=== PATIENT | female | born 1940 | race Caucasian/White ===

== ENCOUNTER 2022-12-14 01:10 | Day surgery (SDC) | payer MEDICARE, SELFPAY ==
[2022-12-05 13:59] VITALS: BMI 32.9
--- NOTE | 2022-12-05 14:22 | PC.NURSE ---
Patient had an inventory taker already set up on her phone when she was called for pre op interview.
[2022-12-14 07:44] VITALS: BP 155/52; PULSE 64; RESP 16; TEMP 36.1; O2SAT 100
[2022-12-14] MEDS: LACTATED RINGERS 1,000 ML 150 ML IV CONT (07:48)
--- NOTE | 2022-12-14 07:54 | WPDANESEPPF ---
Anes - Initial Pre Proc Eval Procedure: Operation Date: 12/14/22 09:00 Proposed Procedures p Colonoscopy - Paul Becerra MD Date/Time: 12/14/22 07:54 Surgeon: Paul Becerra MD Pre Op Diagnosis: hx colon polyps Patient Data Age: 82 Gender: F Height: 1.45 m Weight: 69.5 kg Last Vital Signs Temp 36.1 C L 12/14/22 07:44 Pulse 64 12/14/22 07:44 Resp 16 12/14/22 07:44 BP 155/52 H 12/14/22 07:44 Pulse Ox 100 12/14/22 07:44 O2 Del Method Room Air 12/14/22 07:44 Allergies Allergy/AdvReac Type Severity Reaction Status Date / Time No Known Allergies Allergy Verified 12/14/22 07:42 Home Medications Medication Instructions Recorded Confirmed Type omeprazole 40 mg capsule,delayed 40 mg PO DAILY #90 caps 03/28/21 12/14/22 Rx release amlodipine 5 mg tablet 5 mg PO DAILY 12/05/22 12/14/22 History aspirin 81 mg tablet,delayed 81 mg PO DAILY 12/05/22 12/14/22 History release losartan 25 mg tablet 25 mg PO DAILY 12/05/22 12/14/22 History lovastatin 40 mg tablet 40 mg PO DAILY 12/05/22 12/14/22 History metoprolol tartrate 25 mg tablet 25 mg PO BID 12/05/22 12/14/22 History Patient hx anesthesia problems: none Family hx anesthesia problems: none Results Review: All pre-operative results and documents have been reviewed as part of the pre-operative evaluation. [facility] Past Medical History Medical History (Updated 12/14/22 @ 07:55 by Edward Harman MD) Deaf HTN (hypertension) Myocardial infarct Obesity Surgical History Surgical History (Updated 12/14/22 @ 07:55 by Edward Harman MD) H/O colonoscopy Social History Social History Smoking status: Never smoker Substance use type: does not use Living arrangements: other Anes - Eval Final PreProcedure Day of Procedure 12/14/22 07:54 Patient weight: obese Heart: regular rate and rhythm Lungs: clear to auscultation Neurological: alert and oriented Last oral intake: >/= 8 hours ASA classification: III Emergent: no Anesthetic plan: proceed Anesthesia type and monitoring: general GIVS and standard monitoring Results Review: All pre-operative results and documents have been reviewed as part of the pre-operative evaluation. Informed Consent: The patient's anesthetic plan and its attendant risks and benefits were discussed with the patient/family/POA. Questions were solicited and answers provided to the satisfaction of the patient/family/POA.
--- NOTE | 2022-12-14 08:16 | P.HP_ITS ---
History of Present Illness History of Present Illness Consent: Risks, benefits, and alternatives have been discussed and questions answered. Patient agrees to proceed with procedure. Chief complaint: hx colon polyps Narrative: Zelda Martin is a 82 year old female Presents for screening colonoscopy. Patient is deaf and much of the history is obtained with the assistance of her daughter who reads lips and sign language. Patient has a history of cecal polyp removed at [facility] in 2017. Patient reports her current weight appetite bowel movements are normal. She presents today for screening colonoscopy. Review of Systems Review of Systems: Review of systems noncontributory. [facility] Past Medical History Medical History (Updated 12/14/22 @ 08:17 by Paul Becerra MD) Deaf HTN (hypertension) Myocardial infarct Obesity Surgical History Surgical History (Updated 12/14/22 @ 07:55 by Edward Harman MD) H/O colonoscopy Social History Social History Smoking status: Never smoker Substance use type: does not use Living arrangements: other Meds Home Medications and Allergies Home Medications Medication Instructions Recorded Confirmed Type omeprazole 40 mg capsule,delayed 40 mg PO DAILY #90 caps 03/28/21 12/14/22 Rx release amlodipine 5 mg tablet 5 mg PO DAILY 12/05/22 12/14/22 History aspirin 81 mg tablet,delayed 81 mg PO DAILY 12/05/22 12/14/22 History release losartan 25 mg tablet 25 mg PO DAILY 12/05/22 12/14/22 History lovastatin 40 mg tablet 40 mg PO DAILY 12/05/22 12/14/22 History metoprolol tartrate 25 mg tablet 25 mg PO BID 12/05/22 12/14/22 History Allergies Allergy/AdvReac Type Severity Reaction Status Date / Time No Known Allergies Allergy Verified 12/14/22 07:42 Vital Signs Vital Signs - 24 hr 12/14/22 07:44 Temperature 96.9 F L Pulse Rate 64 Respiratory Rate 16 Blood Pressure 155/52 H Pulse Oximetry 100 Oxygen Delivery Room Air Exam Narrative: Physical exam reveals patient to be alert. Vital signs stable. HEENT exam is unremarkable. Patient is anicteric. Lungs are clear to auscultation and percussion. Heart is without murmur or extra sounds. Abdomen bowel sounds are present soft nontender with no organomegaly. Digital external rectal exam is normal. Assessment and Plan Assessment and plan (1) History of colon polyps: Code(s): Z86.010 - Personal history of colonic polyps Status: Acute Assessment and Plan: Patient has a history of colon polyps removed elsewhere more than 5 years ago. Plan for surveillance colonoscopy at this time and consider this at 5 year intervals. (2) Deaf: Code(s): H91.90 - Unspecified hearing loss, unspecified ear Status: Acute
[2022-12-14 09:09] VITALS: BP 111/54; PULSE 60; RESP 16; O2SAT 99
[2022-12-14 09:19] VITALS: BP 111/53; PULSE 60; RESP 15; O2SAT 99
[2022-12-14 09:29] VITALS: BP 113/52; PULSE 60; RESP 16; O2SAT 99
== END 2022-12-14 09:45 | disposition home or self-care (01) ==
PROVIDERS: PCP Internal Medicine Infectious Disease; Visit Provider Internal Medicine Gastroenterology
PROC: 0DJD8ZZ Inspection of Lower Intestinal Tract, Via Natural or Artificial Opening Endoscopic (ICD-10-PCS; CPT 45378; principal; 2022-12-14 09:00)
DX: Z12.11 Encounter for screening for malignant neoplasm of colon (principal); K64.8 Other hemorrhoids; K57.30 Diverticulosis of large intestine without perforation or abscess without bleeding; Z86.010 Personal history of colon polyps; I10 Essential (primary) hypertension; I25.2 Old myocardial infarction; Z79.82 Long term (current) use of aspirin; E66.9 Obesity, unspecified; Z68.33 Body mass index [BMI] 33.0-33.9, adult; H91.90 Unspecified hearing loss, unspecified ear
CPT/HCPCS: G0105; J2704; J7120

== ENCOUNTER 2023-07-13 10:14 | Emergency (ER) | payer MEDICARE, SELFPAY ==
--- NOTE | ~2023-07-13 | XR_ITS ---
EXAMINATION: XR lumbar spine 2-3V DATE: 07/13/2023 11:11 INDICATION: Low back pain. TECHNIQUE: 3 views of lumbar spine were obtained. COMPARISON: None. FINDINGS: There is 12 degrees levoscoliosis of lumbar spine. There is 3 mm retrolisthesis of L2 on L3 . There is mild chronic anterior wedging of T12 vertebral body. There is mildly decreased disc height at L1-L2 and severely decreased disc height from L2-L3 through L5-S1. 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 IMPRESSION: 1. Severe lumbar spondylosis. 2. Lumbar levoscoliosis. Reviewed, dictated and finalized at location A.
--- NOTE | ~2023-07-13 | US_ITS ---
EXAMINATION: US venous doppler [facility] DATE: 07/13/2023 11:09 INDICATION: Left lower limb pain TECHNIQUE: Grayscale ultrasound images without and with compression and Doppler ultrasound images of the left lower extremity veins were obtained. COMPARISON: None. FINDINGS: The visualized portions of left common femoral vein, profunda (deep) femoral vein, femoral vein, popl iteal vein, peroneal veins, posterior tibial veins, gastrocnemius vein and greater saphenous vein out flow are patent. IMPRESSION: 1. No deep venous thrombosis in the left lower limb. Reviewed, dictated and finalized at location B.
[2023-07-13 10:30] VITALS: BP 117/84; PULSE 57; RESP 16; TEMP 36.4; O2SAT 97
[2023-07-13 11:05] VITALS: BP 140/55; PULSE 56; RESP 18; O2SAT 97
--- NOTE | 2023-07-13 11:05 | ED.GENADULT ---
HPI - General Adult General Chief complaint: Extremity Injury, Lower Stated complaint: left leg pain? Time Seen by Provider: 07/13/23 10:19 History of Present Illness HPI narrative: patient is an 82-year-old female who is deaf that presents ER with left leg pain. Ongoing over last couple days. Was seen at [facility] last night had an x-ray of her knee. Pain is behind the knee and radiates down the leg. Worse with trying to stand. It is associated with some left-sided low back pain. Denies trauma. No numbness or tingling. No fevers or chills or sweats. Patient was provided a leg wrap yesterday. She was not evaluated for DVT. She has no history of DVT and is not on blood thinning medication. Related Data Home Medications Medication Instructions Recorded Confirmed amlodipine 5 mg tablet 5 mg PO DAILY 12/05/22 12/14/22 aspirin 81 mg tablet,delayed 81 mg PO DAILY 12/05/22 12/14/22 release losartan 25 mg tablet 25 mg PO DAILY 12/05/22 12/14/22 lovastatin 40 mg tablet 40 mg PO DAILY 12/05/22 12/14/22 metoprolol tartrate 25 mg tablet 25 mg PO BID 12/05/22 12/14/22 Allergies Allergy/AdvReac Type Severity Reaction Status Date / Time No Known Allergies Allergy Verified 07/13/23 10:14 Review of Systems Review of Systems: ROS unobtainable: Yes other (hard of hearing) Constitutional: Constitutional: Reports no additional constitutional complaints Musculoskeletal: Musculoskeletal: Reports back pain, Denies arthralgias, Denies joint swelling and Denies muscle cramps Integumentary/Breasts: Skin/Breast: Reports system reviewed and no additional complaints, except as docu Neurologic: Reports system reviewed and no additional complaints, except as documented [facility] Past Medical History Medical History (Updated 07/13/23 @ 11:17 by Jameson Greenberg MD) Deaf HTN (hypertension) Myocardial infarct Obesity Surgical History Surgical History (Updated 12/14/22 @ 07:55 by Edward Harman MD) H/O colonoscopy Social History Social History Smoking status: Never smoker Substance use type: does not use Living arrangements: other Exam Narrative: GENERAL: Well-appearing, well-nourished, and in no acute distress. HEAD: Normocephalic, atraumatic. CHEST: Clear to auscultation. No respiratory distress. HEART: Regular rate and rhythm. Normal peripheral pulses. BACK: no midline tenderness the T/L-spine. There is left-sided SI tenderness and low lumbar paraspinal tenderness. EXTREMITIES: Normal range of motion. No edema. yellowing bruise medial aspect of the left knee without tenderness. SKIN: Warm, dry, no rash. NEURO: No focal deficits. Alert and oriented x3. PSYCH: Normal mood and affect. Course Course Emergency Course: informed of results. Discussed treatment with anti-inflammatories muscle relaxers. Recommend using a walker around the house to ain is balance and comfort. Vital Signs Vital signs: Vital Signs Temperature 97.5 F L 07/13/23 10:30 Pulse Rate 57 L 07/13/23 10:30 Respiratory Rate 16 07/13/23 10:30 Blood Pressure 117/84 07/13/23 10:30 Pulse Oximetry 97 07/13/23 10:30 Oxygen Delivery Room Air 07/13/23 10:30 Temperature 97.5 F L 07/13/23 10:30 Pulse Rate 57 L 07/13/23 10:30 Respiratory Rate 16 07/13/23 10:30 Blood Pressure 117/84 07/13/23 10:30 Pulse Oximetry 97 07/13/23 10:30 Oxygen Delivery Room Air 07/13/23 10:30 Medical Decision Making Vital Signs Vital Signs: Vital Signs Temperature 97.5 F L 07/13/23 10:30 Pulse Rate 57 L 07/13/23 10:30 Respiratory Rate 16 07/13/23 10:30 Blood Pressure 117/84 07/13/23 10:30 Pulse Oximetry 97 07/13/23 10:30 Oxygen Delivery Room Air 07/13/23 10:30 Temperature 97.5 F L 07/13/23 10:30 Pulse Rate 57 L 07/13/23 10:30 Respiratory Rate 16 07/13/23 10:30 Blood Pressure 117/84 07/13/23 10:30 Pulse Oximetry
[2023-07-13] MEDS: KETOROLAC 30 MG/ML VIAL (*BKC) IM (11:30)
== END 2023-07-13 11:40 | disposition home or self-care (01) ==
PROVIDERS: Emergency Provider Emergency Medicine; PCP Internal Medicine Infectious Disease
DX: M54.32 Sciatica, left side (principal); I10 Essential (primary) hypertension; E66.9 Obesity, unspecified; Z68.30 Body mass index [BMI] 30.0-30.9, adult; Z79.82 Long term (current) use of aspirin
CPT/HCPCS: 72100; 93971; 96372; 99284; J1885